=== PATIENT | female | born 1975 | race Caucasian/White ===

== ENCOUNTER → 2016-07-29 | Outpatient (CLI) | payer BC, MEDICARE ==
[~2016-07-29] MED LIST: ACETAMINOPHEN PO; ALBUTEROL17 G1 NEB; ALBUTEROL20 ml INH; ALPRAZOLAM1 MG PO; AMBIEN12.5 MG DOB; BUSPAR15 MG PO; CIPRO PO; COLACE50 MG PO; COMBIVENT INH14.7 GM INH; CYMBALTA PO; DELTASONE20 MG PO; DEPLIN-ALGAL O1 EAC1; DEXILANT60 MG PO; DICLOFENAC; FAMOTIDINE PO; FETZIMA80 MG PO; GAS-X80 MG PO; LEVOTHYROXINE50 MCG PO; LEVSIN SUBLINGUAL; METHYLPHENIDATE36 M1 PO; MUCINEX DM1 TAB.SR . PO; OMNICEF PO; ORTHO EVRA1 PATCH.WK TOP; PERCOCET5/325 PO; PREDNISONE PO; PROTONIX PO; RISPERDAL1 M1 PO; RISPERDAL2 MG PO; ROXICODONE5 MG PO; SERTRALINE HCL100 MG PO; WELLBUTRIN PO; XANAX1 MG PO; ZITHROMAX; ZOFRAN PO; ZOLOFT PO; ZOLPIDEM TART12.5 M1 PO
[2016-07-29 14:58] LABS: BASOPHIL% 0.7 % (0-2.5); EOSINOPHIL# 0.4 X10e3 (0-0.7); EOSINOPHIL% 5.4 % (0.0-7.0); HEMOGLOBIN 11.7 gm/dL (12.0-16.0); LYMPHOCYTE# 1.8 X10e3 (1.0-3.5); LYMPHOCYTE% 25.9 % (17.0-45.0); MEAN CELL VOLUME 78.5 FL (83-96); MEAN CORPUSCULAR HEMOGLOBIN 25.5 PG (28-34); MEAN CORPUSCULAR HGB CONC 32.5 g/dL (30-36); MEAN PLATELET VOLUME 6.8 FL (6.5-11.5); MONOCYTE# 0.5 X10e3 (0-1.0); NEUTROPHIL# 4.2 X10e3 (1.5-7.1); PLATELET COUNT 189 X10e3 (140-420); RED BLOOD COUNT 4.59 X10e (3.90-5.30); RED CELL DISTRIBUTION WIDTH 16.4 % (11.0-15.5); WHITE BLOOD COUNT 6.9 X10e3 (4.0-10.5)
[2016-07-29 15:00] LABS: DIFF IND NO
[2016-07-29 15:19] LABS: ALBUMIN SERUM 4.2 g/dL (3.5-5.0); BILIRUBIN,TOTAL 0.3 mg/dL (0.2-2.0); CALCIUM SERUM 8.9 mg/dL (8.4-10.2); GLOM FILT RATE Estimated 70.4 mL/min (>60); POTASSIUM 3.5 mmol/L (3.5-5.1); PROTEIN TOTAL SERUM 7.8 g/dL (6.0-8.3)
[2016-07-29 15:25] LABS: AMPHETAMINE NEG (NEG); BARBITURATES NEG (NEG); BENZODIAZEPINES POS (NEG); COCAINE NEG (NEG); MARIJUANA NEG (NEG); OPIATES NEG (NEG); TRICYCLIC ANTIDEPRESSANTS NEG (NEG); U METHADONE NEG (NEG)
== END | disposition home or self-care (01) ==
LOC: SLABONLY 14:38
PROVIDERS: Psychiatry & Neurology Psychiatry
DX: F33.2 Major depressive disorder, recurrent severe without psychotic features (principal); F42.2 Mixed obsessional thoughts and acts; F90.0 Attention-deficit hyperactivity disorder, predominantly inattentive type; F09 Unspecified mental disorder due to known physiological condition; Z79.899 Other long term (current) drug therapy
CPT/HCPCS: 36415; 80053; 80061; 80307; 83036; 85025

== ENCOUNTER → 2016-10-02 | Outpatient (CLI) | payer BC, MEDICARE ==
[2016-10-02 19:04] LABS: BASOPHIL# 0.1 X10e3 (0-0.3); BASOPHIL% 0.7 % (0-2.5); EOSINOPHIL# 0.4 X10e3 (0-0.7); HEMATOCRIT 37.4 % (35.0-45.0); HEMOGLOBIN 12.2 gm/dL (12.0-16.0); LYMPHOCYTE# 2.1 X10e3 (1.0-3.5); LYMPHOCYTE% 27.4 % (17.0-45.0); MEAN CELL VOLUME 79.1 FL (83-96); MEAN CORPUSCULAR HEMOGLOBIN 25.8 PG (28-34); MEAN CORPUSCULAR HGB CONC 32.6 g/dL (30-36); MEAN PLATELET VOLUME 6.5 FL (6.5-11.5); MONOCYTE# 0.6 X10e3 (0-1.0); MONOCYTE% 7.1 % (3.0-12.0); NEUTROPHIL# 4.7 X10e3 (1.5-7.1); NEUTROPHIL% 59.8 % (40-75); PLATELET COUNT 204 X10e3 (140-420); RED BLOOD COUNT 4.73 X10e (3.90-5.30); RED CELL DISTRIBUTION WIDTH 16.3 % (11.0-15.5); WHITE BLOOD COUNT 7.8 X10e3 (4.0-10.5)
[2016-10-02 19:06] LABS: DIFF IND NO
[2016-10-02 19:54] LABS: THYROID STIMULATING HORMONE 3.27 uIU/ml (0.34-5.60)
[2016-10-02 22:46] LABS: IRON SERUM 26 ug/dL (28-170); TOTAL IRON BINDING CAPACITY 360 ug/dL (269-535); TRANSFERRIN 257 mg/dL (192-382); TRANSFERRIN SATURATION 7 % (20-50)
[2016-10-02 23:37] LABS: FOLATE (FOLIC ACID) >23.3 ng/mL (>5.8)
[2016-10-03 15:20] LABS: FREE THYROXIN (T4) 0.83 ng/dL (0.58-1.64)
== END | disposition home or self-care (01) ==
LOC: SLAB 18:48
PROVIDERS: Psychiatry & Neurology Psychiatry
DX: F90.0 Attention-deficit hyperactivity disorder, predominantly inattentive type (principal); F09 Unspecified mental disorder due to known physiological condition; F33.2 Major depressive disorder, recurrent severe without psychotic features; F42.2 Mixed obsessional thoughts and acts; Z79.899 Other long term (current) drug therapy
CPT/HCPCS: 36415; 82306; 82607; 82746; 83540; 83550; 84439; 84443; 84481; 85025